=== PATIENT | female | born 2005 | race Caucasian/White ===

== ENCOUNTER 2024-09-12 05:47 | Emergency (ER) | payer OTHER ==
[~2024-09-12] VITALS: Ht 152.4 cm; Wt 76.0 kg
[2024-09-12 07:42] LABS: BASO # 0.1 10^3/uL (0.0-0.2); BASO % 0.7 % (0.0-1.0); EOS # 0.1 10^3/uL (0.0-0.5); EOS % 1.3 % (0.0-3.0); HEMATOCRIT 37.5 % (36.0-47.0); HEMOGLOBIN 12.7 g/dl (12.0-15.5); LYMPH # 3.2 10^3/uL (1.5-5.0); LYMPH % 34.9 % (24.0-44.0); MEAN CORPUSCULAR HEMOGLOBIN 30.4 pg (27.0-33.0); MEAN CORPUSCULAR HGB CONC 33.9 g/dl (32.0-36.5); MEAN CORPUSCULAR VOLUME 89.7 fl (80.0-96.0); MONO # 0.8 10^3/uL (0.0-0.8); MONO % 8.9 % (2.0-8.0); NEUTROPHILS # 4.9 10^3/uL (1.5-8.5); NEUTROPHILS % 54.1 % (36.0-66.0); PLATELET COUNT, AUTOMATED 334 10^3/uL (150-450); RED BLOOD COUNT 4.18 10^6/uL (4.00-5.40)
[2024-09-12 07:48] LABS: KETONE, URINE AUTO RFX NEGATIVE (NEGATIVE); LEUKOCYTE ESTERASE UR AUTO RFX NEGATIVE (NEGATIVE); NITRITE, URINE AUTO RFX NEGATIVE (NEGATIVE); RBC, URINE AUTO RFX 0 /HPF (0-3); SQUAM EPITHELIAL CELL UR AURFX 2 /HPF (0-6); WBC, URINE AUTO RFX 1 /HPF (0-3)
[2024-09-12] MEDS: ONDANSETRON 4MG 2ML VIAL IV ONE (07:50)
[2024-09-12 08:06] LABS: LIPASE 29 U/L (12-53)
[2024-09-12 08:08] LABS: ALBUMIN 3.7 G/DL (3.2-5.2); ALKALINE PHOSPHATASE 113 U/L (35-104); ALT/SGPT 22 U/L (7.0-40); AST/SGOT 25 U/L (<34); BILIRUBIN,DIRECT 0.1 MG/DL (<0.4); BILIRUBIN,TOTAL 0.4 MG/DL (0.3-1.2); BLOOD UREA NITROGEN 10 MG/DL (9-23); CALCIUM LEVEL 8.7 MG/DL (8.5-10.1); CARBON DIOXIDE LEVEL 29 MMOL/L (20-31); CHLORIDE LEVEL 100 MMOL/L (98-107); CREATININE FOR GFR 0.67 MG/DL (0.55-1.30); GLOMERULAR FILTRATION RATE > 90.0 (>60); GLUCOSE, FASTING 86 MG/DL (60-100); POTASSIUM SERUM 4.3 MMOL/L (3.5-5.1); SODIUM LEVEL 139 MMOL/L (136-145); TOTAL PROTEIN 6.9 G/DL (5.7-8.2)
[2024-09-12] MEDS ORDERED: ISOVUE-370 76% 100 ML VIAL As Ordered ONE (08:16)
[2024-09-12 10:39] LABS: Trichomonas vaginalis (AMP) NOT DETECTED (NEGATIVE)
[2024-09-12 11:03] LABS: GC DNA AMPLIFICATION NEGATIVE (NEGATIVE)
[2024-09-12 11:07] VITALS: BP 103/71; O2SAT 99
[2024-09-12 11:22] VITALS: TEMP 97.7
== END 2024-09-12 11:37 | disposition home or self-care (01) ==
LOC: M ED 05:47
DX: R10.2 Pelvic and perineal pain (principal); F17.200 Nicotine dependence, unspecified, uncomplicated; G90.A Postural orthostatic tachycardia syndrome [POTS]; Z88.1 Allergy status to other antibiotic agents
CPT/HCPCS: 74177; 76830; 76856; 80047; 80048; 80076; 81001; 83690; 84702; 85025; 87661; 87810; 87850; 93041; 93976; 96374; 99284; J2405; Q9967

== ENCOUNTER → 2025-02-07 | Outpatient (CLI) | payer OTHER ==
[2025-02-07 10:59] LABS: PLATELET COUNT, AUTOMATED 318 10^3/uL (150-450)
[2025-02-07 11:52] LABS: HIV 1&2 SCREEN NEGATIVE (NEGATIVE)
[2025-02-07 12:00] LABS: HEPATITIS C VIRUS ABY INDEX < 0.02 INDEX (<0.8)
== END ==
LOC: M PLALAB 09:23
PROVIDERS: ATTEND Nurse Practitioner Family
DX: Z34.80 Encounter for supervision of other normal pregnancy, unspecified trimester (principal)